=== PATIENT | male | born 1980 | race Caucasian/White ===

== ENCOUNTER 2024-11-23 15:03 | Emergency (ER) | payer BC, OTHER, SELFPAY ==
--- OUTSIDE RECORDS SUMMARY | 2024-11-23 15:11 | XMS_ITS | Encounter Summary ---
Author Organization [facility] [place] Address [address] [place] [address] Care Team Providers Care Crystal Grower Name Role Phone Lindsey Frye NP Primary Care Provider [phone] Encounter Details Date Type Department Care Team (Late st Contact Info) Description 10/23/2024 Results Follow-Up [facility] Family Medicine - [place] [address] [place] [address] Lindsey Frye NP [address] [place] [address] CAIN (EXACT SCIENCE) Social History Tobacco Use Types Packs/Day Years Used Date Smoking Tobacco: Former Cigarettes Passive Smoke Exposure: Past Smokeless Tobacco: Never Comments:quit 10 years ago Alcohol Use Standard Drinks/Week Comments Yes 0 (1 standard drink = 0.6 oz pure alcohol) once or twice a year only vacation ( as of 08/06/2021) AUDIT-C Answer Date Recorded Frequency of Alcohol Consumption Never 09/04/2019 Average Number of Drinks Not on file 020 Frequency of Binge Drinking Not on file 08/09 PHQ-2 Answer Date Recorded Patient Health Questionnaire-2 Score 0 08/23/2024 Sex and Gender Information Value Date Recorded Sex Assigned at Male 08/23/2024 11:29 AM CDT Legal Sex Male 7:28 PM CDT Gender Identity Male 08/05/2021 12:13 PM CDT Sexual Orientation Straight 08/05/2021 12 :13 PM CDT documented as of this encounter Plan of Treatment Upcoming Encounters Date Type Department Care Team (Late st Contact Info) Description 02/22/2025 10:00 AM CDT Telemedicine [facility] Family Medicine - [place] [address] [place] [address] Lindsey Frye NP [address] [place] [address] documented as of this encounter Visit Diagnoses Not on filedocumented in this encounter Additional Health Concerns Assessment Noted Time PHQ-9 Depression Total Score: 6 02/02/20 23 9:17 AM CDT documented as of this encounter Care Teams Crystal Grower Relationship Specialty Start Date End Date Lindsey Frye NP [address] [place] [address] PCP - General NURSE PRACTITIONER 08/31/19 documented as of this encounter
--- OUTSIDE RECORDS SUMMARY | 2024-11-23 15:11 | XMS_ITS | Encounter Summary ---
Author Organization [facility] Address [address] [place] [address] Care Team Providers Care Instrument Engineer Name Role Phone Saurabh Pearce DO Primary Care Provider [phone] Lindsye Frye NP Primary Care Provider [phone] Encounter Details Date Type Department Care Team (Late st Contact Info) Description 03/13/2017 [place] [address] Md, Generic Conversion, Social History Tobacco Use Types Packs/Day Years Used Date Smoking Tobacco: Never Assessed Sex and Gender Information Value Date Recorded Sex Assigned at Male 08/23/2024 11:29 AM CDT Legal Sex Male 7:28 PM CDT Gender Identity Male 08/05/2021 12:13 PM CDT Sexual Orientation Straight 08/05/2021 12 :13 PM CDT documented as of this encounter Plan of Treatment Upcoming Encounters Date Type Department Care Team (Late Contact Info) Description 02/22/2025 10:00 AM CDT Telemedicine [facility] Family Medicine - [address] [phone] Lindsey Frye NP [address] [place] [address] documented as of this encounter Visit Diagnoses Not on filedocumented in this encounter Care Teams Instrument Engineer Relationship Specialty Start Date End Date Saurabh Pearce DO PCP - General 03/12/15 08/30/19 Lindsey Frye NP [address] [place] [address] PCP - General NURSE PRACTITIONER 08/31/19 documented as of this encounter
--- OUTSIDE RECORDS SUMMARY | 2024-11-23 15:11 | XMS_ITS | Encounter Summary ---
Author Organization [facility] Address [address] [place] [address] Care Team Providers Care Front Desk Representative Name Role Phone Lindsey Frye NP Primary Care Provider [phone] Encounter Details Date Type Department Care Team (Late st Contact Info) Description 01/17/2024 MyChart Message Enc [facility] [address] [place] [address] Lindsey Frye NP [address] [place] [address] Amlodipine Social History Tobacco Use Types Packs/Day Years Used Date Smoking Tobacco: Former Cigarettes Smokeless Tobacco: Never Comments:quit 10 years ago [...] Date Recorded Patient Health Questionnaire-2 Score 0 08/18/2023 Sex and Gender Information Value Date Recorded Sex Assigned at Male 08/23/2024 11:29 AM CDT Legal Sex Male 7:28 PM CDT Gender Identity Male 08/05/2021 12:13 PM CDT Sexual Orientation Straight 08/05/2021 12 :13 PM CDT documented as of this encounter Plan of Treatment Upcoming Encounters Date Type Department Care Team (Late st Contact Info) Description 02/22/2025 10:00 AM CDT Telemedicine [facility] [address] [place] [address] Lindsey Frye NP [address] [place] [address] documented as of this encounter Visit Diagnoses Not on filedocumented in this encounter Additional Health Concerns Assessment Noted Time PHQ-9 Depression Total Score: 6 02/02/20 23 9:17 AM CDT documented as of this encounter Care Teams Front Desk Representative Relationship Specialty Start Date End Date Lindsey Frye NP [address] [place] [address] PCP - General NURSE PRACTITIONER 08/31/19 documented as of this encounter
--- OUTSIDE RECORDS SUMMARY | 2024-11-23 15:11 | XMS_ITS | Clinical Summary ---
Author Organization [facility] Address [facility] [place] [address] Care Team Providers Care Artificial Flowers Dyer Name Role Phone Lindsey Frye AAKASH Primary Care Provider [phone] Allergies No known active allergies Medications ibuprofen (MOTRIN) 800 MG tabletIndication s:Strain of tendon of right lower extremity, initial encounter Take 1 tablet (800 mg total) by mouth every 8 (eight) hours as needed for Pain. 90 tablet 1 09/25/19 23 Active busPIRone (BUSPAR) 15 MG tabletIndication s:Anxiety TAKE 1 TABLET(15 MG) BY MOUTH TWICE DAILY 180 tablet 05/02/20 24 Active citalopram (CELEXA) 40 MG tabletIndication s:Anxiety TAKE 1 TABLET BY MOUTH EVERY DAY 90 tablet 2 05/24/19 25 Active Vitamin D3 125 mcg Tab Take 1 tablet (125 mcg total) by mouth daily. Active amLODIPine (NORVASC) 5 MG tabletIndication s:Essential hypertension TAKE 1 TABLET BY MOUTH EVERY EVENING FOR BLOOD PRESSURE 90 tablet 11/21/19 25 Active amLODIPine (NORVASC) 5 MG tabletIndication s:Essential hypertension TAKE 1 TABLET BY MOUTH EVERY EVENING FOR BLOOD PRESSURE 90 tablet 08/22/19 25 025 Discontinued Active Problems Problem Noted Date Diagnosed Date Acid reflux 04/22/2017 Anxiety 10/04/2012 Essential hypertension 10/04/2012 Obesity 10/04/2012 Resolved Problems Problem Noted Date Diagnosed Date Resolved Date Chronic cough 04/22/2017 07/17/2019 Upper respiratory infection 03/23/2017 07/17/2019 Pilonidal cyst 08/26/2016 09/04/2019 Acute pharyngitis 04/08/2016 07/17/2019 Sore throat 04/08/2016 07/17/2019 Encounter for other general counseling and advice on contraception 01/16/2016 07/17/2019 Encounter for preventive health examination 09/29/2012 01/19/2020 Encounters Date Type Department Care Team Description 10/23/2024 Results Follow-Up [facility] Family Medicine - [place] [address] [place] [address] Lindsey Frye NP COLOGCHALO (EXACT SCIENCE) 09/13/2024 Scan [facility] HE[facility] INFO SRVCS Scanned, Doc Med Group Dilated Eye Exam (SCAN) from Last 3 Months Immunizations Immunization Administration Dates Next Due Flucelvax 6 Months+ (Prefilled Syringe) 01/22/20 Influenza (Generic) 03/29/2015 Pneumococcal (Pneumovax 23) 09/04/2019 Pneumococcal(Ppv 23)Aka Pneumovax 09/04/2019 Tdap (Boostrix) 02/18/2022 Family History Medical History Relation Comments Diabetes Brother Diabetes Father Mental Health Father Diabetes Mother Heart Disease Mother Relation Status Comments Brother Alive Father Alive Mother Alive Social History Tobacco Use Types Packs/Day Years Used Date Smoking Tobacco: Former Cigarettes Passive Smoke Exposure: Past Smokeless Tobacco: Never Tobacco Cessation:Counseling Given: No Comments:quit 10 years ago Alcohol Use Standard [...] Orientation Straight 08/05/2021 12 :13 PM CDT Last Filed Vital Signs Vital Sign Reading Time Taken Comments Blood Pressure 123/78 08/23/2024 11:30 AM CDT Pulse 89 08/23/2024 11:30 AM CDT Temperature 36.7 C (98.1 F) 08/23/2024 11:30 AM CDT Respiratory Rate 20 02/01/2023 9:14 AM CDT Oxygen Saturation 98% 08/23/2024 11:30 AM CDT Inhaled Oxygen Concentration - - Weight 115 kg (253 lb 8 oz) 08/23/2024 11:30 AM CDT Height 188 cm (6' 2) 08/23/2024 11:30 AM CDT Body Mass Index 32.55 08/23/2024 11:30 AM CDT Plan of Treatment Upcoming Encounters Date Type Department Care Team (Late st Contact Info) Description 02/22/2025 10:00 AM CDT Telemedicine [facility] Family Medicine - [place] [address] [place] [address] Lindsey Frye NP [address] [place] [address] Health Maintenance Due Date Last Done Comments Hepatitis C 1996 Hepatitis B Vaccines (1 of 3 - 19+ 3-dose series) 1997 COVID-19 Vaccine (2023- season) 2024 03/06/2021, 07/28/2020, 07/06/2020 Annual Physical 08/23/2025 08/23/2024, 08/08, 08/12/2022, Additional history exists Colorectal Cancer Screening FIT-DNA (3 Years) 10/16/2027 10/15/2024 DTaP, Tdap and Td Vaccines (2 - Td or Tdap) 02/19/2032 02/18/2022 Pneumococcal Vaccine: Pediatrics (0 to 5 Years) and At-Risk Patients (6 to 49 Years) Aged Out 09/04/2019, 09/04/2019 No longer eligibl e based on patient's age to complete this topic PHQ-2 (Physician [place]ando) Completed 08/23/2024 HPV Vaccines Aged Out No longer eligi ble based on patient's age to complete this topic Meningococcal B Vaccine Aged Out No l onger eligible based on patient's age to complete this topic Meningococcal Vaccine Aged Out No beatriz riki eligible based on patient's age to complete this topic RSV Immunizations Under 20 Months Aged Out No longer eligible based on patient's age to complete this topic Procedures Procedure Name Priority Date/Time Associated Diagnosis Comments COLOGUARD (EXACT SCIENCE) Routine 10/15/2024 10:45 AM CDT Screen for colon cancer DIABETIC RETINOPATHY EXAM (NEGATIVE)(SCAN ORDER) Routine 09/13/2024 from Last 3 Months Results * COLOGUARD (EXACT SCIENCE) (10/15/2024 10:45 AM CDT) COLOGUARD RESULT Negative Negative [facility] (CLIA #:[id number]) Comment: The Cologuard (TM) test was performed on this specimen. NEGATIVE TEST RESULT. A negative Cologuard result indicates a low likelihood that a colorectal cancer (CRC) or advanced adenoma (adenomatous polyps with more advanced pre-malignant features) is present. The chance that a person with a negative Cologuard test has a colorectal cancer is less than 1 in 1500 (negative predictive value >99.9%) or has an advanced adenoma is less than 5.3% (negative predictive value 94.7%). These data are based on a prospective cross-sectional study of 10,000 individuals at average risk for colorectal cancer who were screened with both Cologuard and colonoscopy. (Mario Acevedo al, N Engl J Med 2014;370(14):1286- 1297) The normal value (reference range) for this assay is negative. COLOGUARD RE-SCREENING RECOMMENDATION: Periodic colorectal cancer screening is an important part of preventive healthcare for asymptomatic individuals at average risk for colorectal cancer. Following a negative Cologuard result, the [employer] Society and U.S. Multi-Society Task Force screening guidelines recommend a Cologuard re-screening interval of 3 years. References: [employer] Guideline for Colorectal Cancer Screening: https://www.cancer.org/cancer/lggkt-fgisop-enclea/jeynbxyft-rfrrdxzmt-zkyxmxj/ac s-rec ommendations.html.; Jose FARRAR, Thompson SPAULDING, Neli LOMBARDI, Colorectal Cancer Screening: Recommendations for Physicians and Patients from the U.S. Multi-Society Task Force on Colorectal Cancer Screening , Am J Gastroenterology 2017; 112:7568-8173. TEST DESCRIPTION: Composite algorithmic analysis of stool DNA-biomarkers with hemoglobin immunoassay. Quantitative values of individual biomarkers are not reportable and are not associated with individual biomarker result reference ranges. Cologuard is intended for colorectal cancer screening of adults of either sex, 45 years or older, who are at average-risk for colorectal cancer (CRC). Cologuard has been approved for use by the U.S. FDA. The performance of Cologuard was established in a cross sectional study of average-risk adults aged 50-84. Cologuard performance in patients ages 45 to 49 years was estimated by sub-group analysis of near-age groups. Colonoscopies performed for a positive result may find as the most clinically significant lesion: colorectal cancer [4.0%], advanced adenoma (including sessile serrated polyps greater than or equal to 1cm diameter) [20%] or non- advanced adenoma [31%]; or no colorectal neoplasia [45%]. These estimates are derived from a prospective cross-sectional screening study of 10,000 individuals at average risk for colorectal cancer who were screened with both Cologuard and colonoscopy. (Mario Rodas et al, N Engl J Med 2014;370(14):2261-5645.) Cologuard may produce a false negative or false positive result (no colorectal cancer or precancerous polyp present at colonoscopy follow up). A negative Cologuard test result does not guarantee the absence of CRC or advanced adenoma (pre-cancer). The current Cologuard screening interval is every 3 years. ([employer] Society and U.S. Multi-Society Task Force). Cologuard performance data in a 10,000 patient pivotal study using colonoscopy as the reference method can be accessed at the following location: www.[employer]/results. Additional description of the Cologuard test process, warnings and precautions can be found at www.[employer].com. STOOL STOOL SPECIMEN / Unknown 10/15/2024 10:45 AM CDT 10/17/2024 10:19 AM CDT us Lindsey Frye NP BODY FLUIDS AND STOOLS ORDERABL ES Final Result [facility] [address] [place] [address], [facility] (CLIA #:[id number]) [address] [place] [address] * DIABETIC RETINOPATHY EXAM (NEGATIVE) (09/13/2024) us Doc Med Group Scanned SCANNING Final Resu lt [facility] from Last 3 Months [facility] Care Teams Artificial Flowers Dyer Relationship Specialty Start Date End Date [place] [address] PCP - General NURSE PRACTITIONER 08/31/19
[2024-11-23 15:13] VITALS: BP 139/88; PULSE 83; RESP 18; TEMP 36.4; O2SAT 99
--- NOTE | 2024-11-23 15:22 | ED_ITS ---
HPI - URI/Sore Throat General Chief Complaint: Upper Respiratory Infection Stated Complaint: Cough Time Seen by Provider: 11/23/24 15:15 Source: patient and RN notes reviewed Mode of arrival: ambulatory Limitations: no limitations History of Present Illness HPI Narrative: 43-year-old male presented for complaint of nasal congestion and drainage, cough, bilateral ear pressure. Onset 4 days. He says the post nasal drainage makes him cough. Taking [id number] cough and cold medicine and Motrin for symptoms. He denies shortness of breath, wheezing, nausea, vomiting, diarrhea, fevers or chills. MD elicited complaint: cough Related Data Home Medications ?Medication ?Instructions ?Recorded ?Confirmed ?Last Taken ?Type amlodipine 2.5 mg tablet mg 11/23/24 Unknown History buspirone 15 mg tablet mg 11/23/24 Unknown History citalopram 40 mg tablet mg 11/23/24 Unknown History Allergies Allergy/AdvReac Type Severity Reaction Status Date / Time No Known Allergies Allergy Verified 11/23/24 15:16 Review of Systems Review of Systems: CONSTITUTIONAL: Denies malaise, body aches, chills, sweats, fever EYES: Denies visual changes, redness, or discharge ENT: Reports rhinorrhea, congestion, otalgia, denies sore throat CARDIOVASCULAR: Denies chest pain, palpitations, edema RESPIRATORY: Reports cough, post nasal drainage. Denies dyspnea GASTROINTESTINAL: Denies abdominal pain, nausea, vomiting, diarrhea SKIN: Denies rash or itching NEUROLOGIC: Denies headache Exam Narrative: GENERAL: well-appearing, no acute distress. EYES: conjunctivae clear ENT: Mucous membranes moist. TMs pearly benson with dull light reflex bilaterally; no tragal tenderness. Oropharynx erythematous without lesions or exudate, no drooling, no hoarseness, no trismus, uvula midline. NECK: Supple. No lymphadenopathy CHEST: Clear to auscultation, breath sounds equal. HEART: Regular rate and rhythm. No murmur heard. SKIN: Warm, dry, no rash. NEURO: Alert and oriented x3. PSYCH: Normal mood and affect Course Course Emergency Course: Patient is aware of diagnosis, understands and agrees to treatment plan. Anticipatory guidance given. Patient agrees to follow-up as directed and is aware of reasons to seek care at the emergency department. Portions of this record may have been created with voice recognition software Level of Care: Express Care Visit Vital Signs Vital signs: Vital Signs Temperature 97.5 F L 11/23/24 15:13 Pulse Rate 83 11/23/24 15:13 Respiratory Rate 18 11/23/24 15:13 Blood Pressure 139/88 11/23/24 15:13 Pulse Oximetry 99 11/23/24 15:13 Oxygen Delivery Room Air 11/23/24 15:13 Temperature 97.5 F L 11/23/24 15:13 Pulse Rate 83 11/23/24 15:13 Respiratory Rate 18 11/23/24 15:13 Blood Pressure 139/88 11/23/24 15:13 Pulse Oximetry 99 11/23/24 15:13 Oxygen Delivery Room Air 11/23/24 15:13 reviewed MDM - URI/Sore Throat MDM Narrative Medical decision making narrative: Discussed physical exam findings c/w viral infection. pt v/u. Patient declined viral testing. Advised supportive measures and signs/symptoms to go to the ER. Pt is appropriate for outpt treatment and f/u. Differential Diagnosis Differential diagnosis: Likely upper respiratory infection, sinusitis and viral infection Discharge Plan Discharge Clinical Impression: Upper respiratory infection Patient Disposition: Home Condition: Stable Instructions: Antibiotic Form, Upper Respiratory Infection (ED) Additional Instructions: Recommendations: Flonase spray and Zyrtec (or Claritin/Mamta) over the counter Cough syrup may cause drowsiness; avoid driving or take it at night time. Coricidin HBP if you have hypertension. Tylenol 1000mg every 8 hours as needed for pain Symptomatic treatment includes: rest, fluids, and increase humidity of the air at home. Follow up with your primary care provider in 1 week. Go to the ER for worsening symptoms or concerns. Patient Language: Tamazight Prescriptions: New benzonatate 200 mg capsule 200 mg PO TID PRN (Reason: cough) Qty: 20 0RF No Action citalopram 40 mg tablet amlodipine 2.5 mg tablet buspirone 15 mg tablet Follow-up/Referrals: Melva,ETELVINA Portillo [Primary Care Provider] - Time of Disposition: 15:24
== END 2024-11-23 15:40 | disposition home or self-care (01) ==
PROVIDERS: Emergency Provider Nurse Practitioner Family; PCP Nurse Practitioner
DX: J06.9 Acute upper respiratory infection, unspecified (principal)
CPT/HCPCS: 99203; G0463